=== PATIENT | female | born 1945 | race Caucasian/White ===

== ENCOUNTER 2022-06-28 09:01 | Inpatient (IN) | payer OTHER, SELFPAY ==
[2022-06-28] VITALS (14 sets, daily range): BP systolic 92–188; BP diastolic 63–111; PULSE 63–80; RESP 12–24; TEMP 36.5–36.8; O2SAT 88–100; BMI 35.6
--- NOTE | 2022-06-28 | ECHO_ITS ---
Patient Info Name: Edith Draper Age: 77 years : 1945 Gender: Female Ht: 61 in Wt: 178 lbs BSA: 1.90 m2 HR: 75 bpm BP: 155 / 81 mmHg Heart Rhythm: Sinus Rhythm Technical Quality: Fair Exam Date: 06/28/2022 1:00 PM Exam Location: [facility] Patient Status: Inpatient Admit Date: 06/28/2022 Staff Ordering Physician: Desiree Reyes MD (bobby/ned) Certified Registered Nurse Anesthetist: Melva Wyman RDCS Attending Provider: Desiree Reyes MD (bobby/ned) Referring Physician: Eric SOARES; Exam Type: CA echo dop color flow w con Study Info Indications - STEMI s/p PCI Complete two-dimensional, color flow and Doppler transthoracic echocardiogram is performed with contrast to opacify the left ventricle and to improve the deliniation of the left ventricle endocardial borders. Contrast/Agitated Saline Contrast/Ag. Saline: Definity Amount: 2.00 ml Administered By: Melva Wyman RDCS Existing IV Access: Yes IV Access Condition: patent with no signs of infiltration Summary 1. Technically difficult study with limited views. 2. Left ventricular systolic function is severely reduced, estimated at <15%. 3. Regional wall motion abnormalities consistent with a large infarction in the LAD territory. Left Ventricle The mid inferolateral and mid anteroseptum jiang are hypokinetic. The mid inferoseptum, mid anterolateral, apical septum, and apical lateral jiang are akinetic. The mid inferior, apical inferior, mid anterior, and apical anterior jiang appear hypokinetic-akinetic. Left ventricular chamber dimension is normal. Left ventricular systolic function is severely reduced, estimated at <15%. There is no increased left ventricular wall thickness. Right Ventricle Right ventricular chamber dimension is not well visualized. Left Atria Left atrial chamber dimension is normal. Right Atria Right atrial chamber dimension is normal. Aortic Valve The aortic valve is not well visualized. There is no aortic valve regurgitation. Pulmonic Valve The pulmonic valve is not well visualized. Mitral Valve Mitral valve appears grossly normal. There is no mitral valve stenosis. There is trace mitral valve regurgitation. Tricuspid Valve The tricuspid valve leaflets are not well visualized. Pericardium/Pleural There is small pericardial effusion. Aorta The aortic root size at the sinus of Valsalva is normal. The prox ascending aorta size is normal. Left Ventricular Outflow Tract Name Value Normal LVOT 2D LVOT Diameter 2.05 cm LVOT Doppler LVOT Peak Gradient 6 mmHg LVOT Mean Gradient 3 mmHg LVOT VTI 25.79 cm LVOT VTI/AV VTI Ratio 0.88 LVOT Stroke Volume 85.13 ml LVOT CO 5.10 l/min LVOT CI 2.69 L/min/m2 Mitral Valve Name Value
--- NOTE | 2022-06-28 09:12 | ECG_ITS ---
Measurements Intervals [place] Rate: 68 P: 48 [place]: 163 QRS: -41 QRSD: 86 T: 53 QT: 416 QTc: 444 Interpretive Statements SINUS RHYTHM VENTRICULAR PREMATURE COMPLEX LEFT AXIS DEVIATION LOW QRS VOLTAGE IN PRECORDIAL LEADS VOLTAGE CRITERIA FOR LVH POOR R WAVE PROGRESSION, ANTERIOR LEADS ANTERIOR ST ELEVATION MYOCARDIAL INJURY- ACUTE BASELINE ARTIFACT- I, II, III, AVR, AVF, V1, V5-V6 ABNORMAL ECG NO PREVIOUS ECG AVAILABLE FOR COMPARISON Electronically Signed On 06-28-2022 12:25:21 CDT by Natan Alba D.O.
[2022-06-28] MEDS: ASPIRIN 81 MG CHEWABLE TABLET 324 MG PO (09:14)
[2022-06-28] MEDS: NITROGLYCERIN SL 0.4 MG TABLET SUBLINGUAL ×2 (09:14→17:20)
--- NOTE | 2022-06-28 09:18 | ED.CHESTPAIN ---
HPI - Chest Pain General Chief Complaint: Chest Pain Stated Complaint: CHEST PAIN X1D Time Seen by Provider: 06/28/22 09:05 History of Present Illness HPI narrative: 77-year-old female presents to the emergency room today for complaints of right-sided chest pain that radiates into her right arm and into her back. She says that the pain started on Monday evening. It has been continuous but has been worse today. She does report that it is worse with activity. She describes the pain as an aching feeling and it comes in waves of intensity. She has had nausea but no vomiting. Denies having any cough or congestion. No fever. She does report feeling short of breath at times. She denies having any cardiac history but she is treated for high blood pressure. She does not currently see a social service director and has not had any stress test or echocardiogram done. She still has her gallbladder. Related Data Allergies Allergy/AdvReac Type Severity Reaction Status Date / Time levofloxacin Allergy Unknown HIVES Verified 06/28/22 09:19 methocarbamol Allergy Unknown HIVES Verified 06/28/22 09:19 Review of Systems Review of Systems: CONSTITUTIONAL: Denies fever, chills, or sweats. EYES: Denies visual changes, redness, or discharge. ENT: Denies rhinorrhea, congestion, sore throat, or otalgia. CARDIOVASCULAR: As per HPI RESPIRATORY: Reports intermittent shortness of breath GASTROINTESTINAL: Reports nausea, no vomiting GENITOURINARY: Denies dysuria or hematuria. SKIN: Denies rash or itching. MUSCULOSKELETAL: Denies back pain, joint pain, or myalgia. NEUROLOGIC: Denies headache, numbness, dizziness, or weakness. PSYCHIATRIC: Denies anxiety or depression. [facility] Family History Family History Father Family history of elevated blood lipids Acute myocardial infarction Sibling Family history of lung cancer Grandparent Acute myocardial infarction Social History Social History Alcohol intake: never Exam Narrative: GENERAL: Well-appearing, well-nourished, appears uncomfortable HEAD: Normocephalic, atraumatic. EYES: PERRLA and EOMI. ENT: Nares clear, no rhinorrhea or epistaxis. Mucous membranes moist. NECK: Supple. No adenopathy or masses. No carotid bruits or JVD CHEST: Clear to auscultation. No respiratory distress. No wheezes rales or rhonchi HEART: Regular rate and rhythm. No murmur heard. Normal peripheral pulses. ABDOMEN: Soft, very tender RUQ EXTREMITIES: Normal range of motion. No edema. SKIN: Warm, dry, no rash. NEURO: No focal deficits. Alert and oriented x3. PSYCH: Normal mood and affect. Course Course Emergency Course: Dr. Ly reviewed EKG and shows a STEMI Code STEMI called at [id number] Cardiology at bedside to evaluate the patient. STEMI protocol in place. 0938 Pt has been taken to the clinical laboratory service teacher. Vital Signs Vital signs: Vital Signs Temperature 36.6 C 06/28/22 09:05 Pulse Rate 73 06/28/22 09:05 Respiratory Rate 16 06/28/22 09:05 Blood Pressure 188/111 H 06/28/22 09:05 Pulse Oximetry 96 06/28/22 09:05 Oxygen Delivery Room Air 06/28/22 09:05 Temperature 36.6 C 06/28/22 09:05 Pulse Rate 73 06/28/22 09:05 Respiratory Rate 16 06/28/22 09:05 Blood Pressure 188/111 H 06/28/22 09:05 Pulse Oximetry 96 06/28/22 09:05 Oxygen Delivery Room Air 06/28/22 09:05 MDM - Chest Pain Lab Data Result diagrams: 06/28/22 09:23 06/28/22 09:23 Labs: Lab Results 06/28/22 06/28/22 06/28/22 Range/Units 09:23 09:23 09:23 WBC 13.8 H (4.5-10.0) K/mm3 RBC 5.00 (4.2-5.4) M/mm3 Hgb 15.8 H (12.0-15.0) g/dL Hct 45.2 (37.0-47.0) % MCV 90.4 (80-100) fl MCH 31.6 (26-34) pg MCHC 35.0 (32-36) g/dl RDW 13.2 (11.5-14.5) % Plt Count 223 (150-375) k/mm3 MPV 9.6 (7.4-10.4) fl Immature Gran % (Auto)
--- NOTE | 2022-06-28 09:19 | PC.NURSE ---
Per ALEJANDRA Jacobsen verbal order readback, give 1 nitro SL and 324mg Aspirin
[2022-06-28] MEDS: ONDANSETRON INJ 4 MG/2 ML VIAL IV PUSH ×2 (09:24→17:18)
[2022-06-28] MEDS: fentaNYL CITRATE INJ (*CRX) 100 MCG/2 ML VIAL 50 MCG IV PUSH (09:25)
--- NOTE | 2022-06-28 09:27 | ECG_ITS ---
Measurements Intervals [place] Rate: 71 P: 59 GA: 135 QRS: -44 QRSD: 85 T: 18 QT: 403 QTc: 441 Interpretive Statements SINUS RHYTHM ATRIAL PREMATURE COMPLEX LOW QRS VOLTAGE IN PRECORDIAL LEADS POOR R WAVE PROGRESSION, ANTERIOR LEADS ANTEROLATERAL ST ELEVATIOIN MYOCARIDAL INJURY- ACUTE HIGH LATERAL ST ELEVATION MYOCARDIAL INFARCT- ACUTE BASELINE ARTIFACT- AVR, AVL, AVF ABNORMAL ECG COMPARED TO ECG 06/28/2022 09:14:[address] ELEVATION MYOCARDIAL INFARCT- ACUTE NOW PRESENT Electronically Signed On 06-28-2022 12:27:04 CDT by Natan Alba D.O.
--- NOTE | 2022-06-28 09:27 | PC.NURSE ---
Per EDP Demi, repeat EKG ordered
[2022-06-28 09:33] LABS: Basophils Absolute Auto 0.1 K/mm3 (0.0-0.1); Basophils Percent Auto 0.5 % (0.2-1.2); Eosinophils Percent Auto 0.3 % (0-4.4); Hematocrit 45.2 % (37.0-47.0); Hemoglobin 15.8 g/dL (12.0-15.0); Immature Granulocyte Absolute 0.08 K/mm3 (0.00-0.031); Immature Granulocyte Percent A 0.6 % (0-0.5); Lymphocytes Absolute Auto 2.23 K/mm3 (0.9-3.2); Lymphocytes Percent Auto 16.2 % (18.3-44.2); Mean Corpuscular Hemoglobin 31.6 pg (26-34); Mean Corpuscular Volume 90.4 fl (80-100); Mean Platelet Volume 9.6 fl (7.4-10.4); Monocytes Absolute Auto 0.7 K/mm3 (0.1-0.6); Neutrophils Absolute Auto 10.7 K/mm3 (1.3-6.7); Neutrophils Percent Auto 77.4 % (45.5-73.1); Platelet Count Result 223 k/mm3 (150-375); Red Cell Distribution Width 13.2 % (11.5-14.5); White Blood Count 13.8 K/mm3 (4.5-10.0)
--- NOTE | 2022-06-28 09:42 | PC.NURSE ---
Patient given 180mg Brilinta and 4000units heparin per EDP Simms
[2022-06-28 09:45] LABS: Alanine Aminotransferase 31 U/L (6-35); Albumin Level 4.6 g/dL (3.5-5.1); Alkaline Phosphatase 103 U/L (38-126); Anion Gap 13 mmol/L (8-16); Aspartate Amino Transferase 83 U/L (14-36); Bilirubin,Total 0.6 mg/dL (0.2-1.3); Blood Urea Nitrogen 20 mg/dL (7-17); Calcium 9.9 mg/dL (8.4-10.2); Carbon Dioxide 18 mmol/L (22-30); Chloride 107 mmol/L (98-107); Estimated CRCL calculation 49 ml/min; Estimated Glomerular Filt Rate > 60; Glucose 175 mg/dL (65-110); Lipase 64 U/L (23-300); Partial Thromboplastin Time 30.4 SECONDS (22.3-36.8); Potassium 3.9 mmol/L (3.4-5.0); Sodium 138 mmol/L (137-145)
[2022-06-28 10:51] LABS: Activated Clotting Time 277 SEC (74-137)
[2022-06-28 10:51] LABS: Activated Clotting Time 474 SEC (74-137)
[2022-06-28 10:51] LABS: Activated Clotting Time 208 SEC (74-137)
--- NOTE | 2022-06-28 11:56 | ECG_ITS ---
Measurements Intervals [place] Rate: 67 P: 54 MT: 144 QRS: -51 QRSD: 88 T: 109 QT: 404 QTc: 427 Interpretive Statements SINUS RHYTHM ATRIAL PREMATURE COMPLEX LOW QRS VOLTAGE IN PRECORDIAL LEADS LEFT ANTERIOR FASCICULAR BLOCK ANTEROLATERAL INFARCT, PROBABLY RECENT HIGH LATERAL INFARCT, PROBABLY RECENT BASELINE ARTIFACT- I, II, AVR ABNORMAL ECG COMPARED TO ECG 06/28/2022 09:30:33 LEFT ANTERIOR FASCICULAR BLOCK NOW PRESENT Electronically Signed On 06-28-2022 16:52:53 CDT by Natan Alba D.O.
--- NOTE | 2022-06-28 11:59 | WPDMODSED ---
Moderate Sedation Note-Pt Data Patient Data Diagnosis: STEMI Present Complaint: Chest pain Procedure to be performed/Plan: Cardiac cath +/- PCI Allergies Allergy/AdvReac Type Severity Reaction Status Date / Time levofloxacin Allergy Unknown HIVES Verified 06/28/22 09:19 methocarbamol Allergy Unknown HIVES Verified 06/28/22 09:19 Current Medications: Active Medications Aspirin (Aspirin 81 Mg Enteric Tablet) 81 mg PO QAM AIDEE Atorvastatin Calcium (Atorvastatin 40 Mg Tablet) 80 mg PO DAILY AIDEE Sodium Chloride (Normal Saline Iv) 1,000 mls @ 125 mls/hr IV CONT .Q8H ONE Stop: 06/28/22 19:55 Nitroglycerin (Nitroglycerin Sl 0.4 Mg Tablet) 0.4 mg SUBLINGUAL Q5MIN PRN PRN Reason: Chest Pain Perflutren Lipid Microsphere (Perflutren Lipid Microspheres 1.5 Ml Vial Diluted To 10 Ml Total Volume) 0 ml IV PUSH ONCE PRN; Protocol PRN Reason: adequate visualization Stop: 06/30/22 11:52 Ticagrelor (Ticagrelor 90 Mg Tablet) 90 mg PO Q12HR AIDEE Sedation/Anesthesia: No previous sedation/anesthesia problems (including family history). [facility] Family History Family History Father Family history of elevated blood lipids Acute myocardial infarction Sibling Family history of lung cancer Grandparent Acute myocardial infarction Social History Social History Alcohol intake: never Mod Sed Physical Exam Physical Exam Pre Procedural Exam: Normal: Lungs (Non-labored respirations), Heart Rhythm (Sinus rhythm), Neuro Exam (Alert and oriented x 3), Extremities (2+ distal pulses) and Skin (Warm and dry) and Variation: Appearance (In distress with active chest pain) Hours since solid foods: 4 Hours since liquid intake: 5 Mallampati Classification: class III Internal Medicine - PN: Obj Da Vital Signs Vital Signs: Vital Signs - 24 hr 06/28/22 09:05 06/28/22 09:15 06/28/22 09:34 Temperature 36.6 C Pulse Rate 73 75 71 Respiratory Rate 16 12 Blood Pressure 188/111 H 155/81 H Pulse Oximetry 96 95 Oxygen Delivery Room Air Meds/Results Medications: Active Medications Generic Name Dose Route Start Last Admin Trade Name Freq PRN Reason Stop Dose Admin Aspirin 81 mg 06/29/22 09:00 Aspirin 81 Mg Enteric Tablet PO QAM [facility] Atorvastatin Calcium 80 mg 06/29/22 09:00 Atorvastatin 40 Mg Tablet PO DAILY [facility] Sodium Chloride 1,000 mls @ 125 mls/hr 06/28/22 11:56 Normal Saline Iv IV CONT 06/28/22 19:55 .Q8H ONE Nitroglycerin 0.4 mg 06/28/22 11:56 Nitroglycerin Sl 0.4 Mg Tablet SUBLINGUAL Q5MIN PRN Chest Pain Perflutren Lipid Microsphere 0 ml 06/28/22 11:51 Perflutren Lipid Microspheres 1.5 Ml Vial Diluted To 10 Ml Total Volume IV PUSH 06/30/22 11:52 ONCE PRN adequate visualization Protocol Ticagrelor 90 mg 06/28/22 21:00 Ticagrelor 90 Mg Tablet PO Q12HR [facility] Labs CBC & Chem 7: 06/28/22 09:23 06/28/22 09:23 Labs: Laboratory Results - last 24 hr 06/28/22 06/28/22 06/28/22 09:23 09:23 09:23 WBC 13.8 H RBC 5.00 Hgb 15.8 H Hct 45.2 MCV 90.4 MCH 31.6 MCHC 35.0 RDW 13.2 Plt Count 223 MPV 9.6 Immature Gran % (Auto) 0.6 H Neut % (Auto) 77.4 H Lymph % (Auto) 16.2 L King % (Auto) 5.0 Eos % (Auto) 0.3 Baso % (Auto) 0.5 Lymph # (Auto) 2.23 King # (Auto) 0.7 H Eos # (Auto) 0.0 Baso # (Auto) 0.1 Abs Immat Gran (auto) 0.08 H Absolute Neuts (auto) 10.7 H Absolute Nucleated RBC 0.0 Nucleated RBC % 0.0 PT 13.0 INR 1.0 APTT 30.4 Activ Coag Time Kaolin Sodium 138 Potassium 3.9 Chloride 107 Carbon Dioxide 18 L Anion Gap 13 BUN 20 H Creatinine 0.80 Estim Creat Clear Calc 49 Estimated GFR > 60 Glucose 175 H Calcium 9.9 Total Bilirubin 0.6 AST 83 H ALT 31 Alkaline Phosphatas
--- NOTE | 2022-06-28 12:47 | WPDCNINT ---
Assessment and Plan Assessment and plan (1) ST elevation (STEMI) myocardial infarction: Code(s): I21.3 - ST elevation (STEMI) myocardial infarction of unspecified site Status: Acute Assessment and Plan: Patient presented with chest pain to the ED on 06/28/2022 she stated she chest since 06/26, with increasing intensity along with nausea, vomiting, shortness of breath and diaphoresis that prompted her to come to the ED. EKG in the ER showed ST elevations in the anterior and lateral leads. Troponins were elevated in the ER at 4.260. Patient was urgently taken to the cardiac analytical lab analyst which she had a PTCA/PTCI with SARI x2 to the LAD, LVEDP was 38 mmHg, patient was given Lasix. The lesion was tight, more contrast was given than normal per Cardiology. Patient was given nitroglycerin during the procedure -currently on maintenance IV fluids per cardiac catheterization protocol -patient is started on Brilinta, aspirin and atorvastatin -cardiology following the patient closely (2) Chest pain: Code(s): R07.9 - Chest pain, unspecified Status: Acute Assessment and Plan: STEMI, as above (3) Essential hypertension: Code(s): I10 - Essential (primary) hypertension Status: Acute Assessment and Plan: Blood pressure is a low normal at this time, continue to monitor Plan DVT prophylaxis: SCDs Stress ulcer prophylaxis: Not applicable Nutrition: Heart healthy diet Discussed with patient and updated with her condition and plan of care. She is aware that she had 2 stents placed to her coronary artery, I answered all her questions Code Status: Full code Critical Care Time Spent: 43 minutes Due to a high probability of clinically significant, life threatening deterioration, the patient required my highest level of preparedness to intervene emergently and I personally spent this critical care time directly and personally managing the patient. This critical care time included obtaining a history; examining the patient; pulse oximetry; ordering and review of studies; arranging urgent treatment with development of a management plan; evaluation of patient's response to treatment; frequent reassessment; and discussions with other providers. It was exclusive of separately billable procedures and treating other patients and teaching time. Please see Assessment and Plan section and the rest of the note for further information on patient assessment and treatment [employer] Consult Note Consult date: 06/28/22 Reason for consult: Chest pain with nausea, diaphoresis, radiation to the right arm, STEMI was called in the ER, patient was taken to the analytical lab analyst emergently where she was found to have occlusion of the LAD status post PTCA/PTCI with SARI x2 to LAD, LVEDP was 38 mmHg. HPI: Edith Draper is a 77 year old female with history of cervical spine stenosis, essential hypertension no prior coronary artery disease presented the ED on 06/28/2022 complains of chest pain that radiates to her right arm into her back, patient also had nausea, diaphoresis. States the pain started on 06/26/2022 and has been getting worse since then, she did state that it was worse with activity. Complained of pressure-like continuous aching pain. Denies any fevers, chills, cough. She did complain of some shortness of breath at times. EKG in the ER showed ST elevations in the anterior and lateral leads. Troponins were elevated in the ER at 4.260. Patient was urgently taken to the cardiac analytical lab analyst which she had a PTCA/PTCI with SARI x2 to the LAD, LVEDP was 38 mmHg, patient was given Lasix. The lesion was pretty tight, more contrast was given than normal per Cardiology. I discussed with the steam engineer, no other coronary artery were diseased. Patient was transferred to the ICU for further management. Patient seen and examined upon arrival to the ICU, she was initially hypoxic, supplemental oxygen was placed via nasal cannula with improvement
[2022-06-28] MEDS: SODIUM CHLORIDE 0.9% IV 1,000 ML 125 ML IV CONT (12:52)
[2022-06-28] MEDS: PERFLUTREN LIPID MICROSPHERES 1.5 ML VIAL DILUTED TO 10 ML TOTAL VOLUME IV PUSH (13:45)
--- NOTE | 2022-06-28 14:06 | ADMGEN ---
This patient, Edith Draper, was admitted to Intensive Care Unit-7. Patient/family oriented to hospital policies and general routines including ID bracelet, bed and alarms, visiting hours, pain management, procedures, bathroom and other care routines, personal items, smoking policy, room service/diet, and visiting hours. Information on how to activate the Rapid Response Team has been discussed. Patient/Family are encouraged to report perceived risks to care and to ask questions if they do not understand what they are told or what they should do.
[2022-06-28 14:09] LABS: Basophils Percent Auto 0.3 % (0.2-1.2); Hematocrit 46.3 % (37.0-47.0); Hemoglobin 15.6 g/dL (12.0-15.0); Immature Granulocyte Absolute 0.08 K/mm3 (0.00-0.031); Immature Granulocyte Percent A 0.5 % (0-0.5); Lymphocytes Absolute Auto 1.41 K/mm3 (0.9-3.2); Lymphocytes Percent Auto 9.1 % (18.3-44.2); Mean Corpuscular HGB Conc 33.7 g/dl (32-36); Mean Corpuscular Hemoglobin 31.3 pg (26-34); Mean Corpuscular Volume 92.8 fl (80-100); Mean Platelet Volume 9.8 fl (7.4-10.4); Monocytes Absolute Auto 0.9 K/mm3 (0.1-0.6); Monocytes Percent Auto 5.9 % (2.6-8.5); Neutrophils Absolute Auto 13.1 K/mm3 (1.3-6.7); Neutrophils Percent Auto 84.2 % (45.5-73.1); Platelet Count Result 212 k/mm3 (150-375); Red Blood Count 4.99 M/mm3 (4.2-5.4); Red Cell Distribution Width 13.6 % (11.5-14.5); White Blood Count 15.5 K/mm3 (4.5-10.0)
--- NOTE | 2022-06-28 14:11 | IVDEFINITY ---
Prior to administration of IV Definity the patient was educated on the risks and benefits of the imaging enhancing agent including potential adverse side effects. The patient verbalized understanding. Allergies were verified. No exclusion criteria were identified and at least one of the following inclusion criteria were met: 1) physician request, 2) patient technically difficult to image (per the [place] [employer]chocardi[employer] guidelines of two or more segments not discernable within the apical view), or 3) questionable left ventricular function. ?
[2022-06-28 14:19] LABS: Anion Gap 13 mmol/L (8-16); Blood Urea Nitrogen 19 mg/dL (7-17); Calcium 9.5 mg/dL (8.4-10.2); Carbon Dioxide 25 mmol/L (22-30); Chloride 101 mmol/L (98-107); Estimated CRCL calculation 44 ml/min; Estimated Glomerular Filt Rate > 60; Glucose 151 mg/dL (65-110); Potassium 3.5 mmol/L (3.4-5.0); Sodium 139 mmol/L (137-145)
[2022-06-28 14:42] LABS: Troponin I > 80.000 ng/mL (0.000-0.034)
--- NOTE | 2022-06-28 15:09 | PM.IMHP ---
H&P: HPI History of Present Illness Date/Time: 06/28/22 15:09 Chief Complaint: Chest Pain Narrative: Patient is a 77-year-old female with a history of hypertension who presented to the ED with chest pain. Patient states she developed chest pain on Monday, and has been ongoing since then. Upon presentation to the ED, patient found to have anterolateral STEMI, therefore, laborer wrecking and salvaging activated, and patient taken emergently to the lab for primary PCI. No history of recent bleeding. Has associated symptoms of shortness of breath and nausea. Review of Systems Review of Systems: All systems reviewed & are unremarkable except as noted in HPI and below (HPI) [facility] Family History Family History Father Family history of elevated blood lipids Acute myocardial infarction Sibling Family history of lung cancer Grandparent Acute myocardial infarction Social History Social History Smoking status: Never smoker Alcohol intake: never Substance use: never Substance use type: does not use Spiritual care concerns: No Meds Home Medications and Allergies Allergies Allergy/AdvReac Type Severity Reaction Status Date / Time levofloxacin Allergy Unknown HIVES Verified 06/28/22 09:19 methocarbamol Allergy Unknown HIVES Verified 06/28/22 09:19 Vital Signs Vital Signs - 24 hr 06/28/22 09:05 06/28/22 09:15 06/28/22 09:34 Temperature 36.6 C Pulse Rate 73 75 71 Respiratory Rate 16 12 Blood Pressure 188/111 H 155/81 H Pulse Oximetry 96 95 Oxygen Delivery Room Air 06/28/22 12:30 06/28/22 12:45 06/28/22 13:00 Temperature 36.5 C Pulse Rate 80 67 80 Respiratory Rate 21 H 22 H 23 H Blood Pressure 122/78 122/78 92/77 L Pulse Oximetry 88 L 98 99 Oxygen Delivery 06/28/22 13:15 Temperature Pulse Rate 64 Respiratory Rate 18 Blood Pressure 131/80 Pulse Oximetry 100 Oxygen Delivery Exam Const: General: in distress mild Resp: Effort & Inspection: normal respiratory effort Auscultation: diminished lung sounds Cardio: Rate: regular rate Rhythm: regular rhythm Heart sounds: no murmurs GI: GI Palp: Yes Soft to palpation and No Tenderness to palpation present (GI) Skin: General skin exam: normal color Neuro: Speech: normal speech Extrem: Other: 2+ distal pulses Psych: Mental Status: mental status grossly normal H&P: Results Labs Labs: Short CBC 06/28/22 06/28/22 Range/Units 09:23 13:51 WBC 13.8 H 15.5 H (4.5-10.0) K/mm3 Hgb 15.8 H 15.6 H (12.0-15.0) g/dL Hct 45.2 46.3 (37.0-47.0) % Plt Count 223 212 (150-375) k/mm3 BMP 06/28/22 06/28/22 09:23 13:51 Sodium 138 139 Potassium 3.9 3.5 Chloride 107 101 Carbon Dioxide 18 L 25 BUN 20 H 19 H Creatinine 0.80 0.90 Glucose 175 H 151 H Calcium 9.9 9.5 Cardiac Enzymes 06/28/22 06/28/22 Range/Units 09:23 13:51 Troponin I 4.260 H* > 80.000 H* D (0.000-0.034) ng/mL Liver Function 06/28/22 Range/Units 09:23 Total Bilirubin 0.6 (0.2-1.3) mg/dL AST 83 H (14-36) U/L ALT 31 (6-35) U/L Alkaline Phosphatase 103 (38-126) U/L Albumin 4.6 (3.5-5.1) g/dL Vital signs, labs, and imaging personally reviewed and independently interpreted. ECG showing acute anterolateral STEMI Assessment and Plan Assessment and plan (1) ST elevation (STEMI) myocardial infarction: Code(s): I21.3 - ST elevation (STEMI) myocardial infarction of unspecified site Status: Acute (2) Essential hypertension: Code(s): I10 - Essential (primary) hypertension Status: Acute Plan Patient presented with a delayed acute anterolateral STEMI (presentation after >48 hours from time of symptom onset). Taken emergently to the cardiac laborer wrecking and salvaging. Found with a 100% thrombotic occlusion of the mid LAD. Successful primary PCI was done with 2 stents in the proximal-mid LAD. Complex PCI
--- NOTE | 2022-06-28 15:41 | WPDCARDPROC ---
Cardiac Cath Procedure Note Date of procedure:: 06/28/22 Performing physician:: Desiree Reyes MD Indication:: CATHETERIZATION LABORATORY REPORT Procedure Date: June 28, 2022 Dry Pan Charger: Desiree Reyes M.D., [facility]? Referring Physician: [facility] Emergency Department - Ann-Marie Lee Anesthesia: Versed and Fentanyl were ordered and given in my presence at 0950, procedure ended at 1142. Supervision of nurse monitored moderate sedation with Versed and Fentanyl was provided for 112 minutes. Patient given a total of 2mg of Versed and 75mcg of Fentanyl. 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 Nonobstructive disease of the left circumflex and RCA. Elevated left ventricular end-diastolic pressure of 38 mmHg Procedure(s): Moderate sedation Right radial artery access Coronary angiography Left heart catheterization IVUS of LAD Placement of drug-eluting stents x2 in the proximal to mid LAD Access Site: Right radial artery Brief History and Clinical Indications: Patient is a 77-year-old female with a history of hypertension who presented with chest pain that began on Monday. Upon presentation to the ED, ECG was remarkable for anterolateral STEMI. Patient had ongoing chest pain. Patient referred for emergent cardiac catheterization for primary PCI. All risks, benefits and alternatives to left heart catheterization with or without percutaneous coronary intervention was discussed at length with the patient. Risk of complications including but not limited to bleeding, infection, arrhythmia, stroke, worsening kidney function, blood loss, groin hematoma, limb loss, emergency coronary artery bypass grafting, and even were discussed with the patient and all questions were answered. The patient understood and wished to proceed. Time out called, patient name, date of , medical record number, allergies, procedure performed, identify Dry Pan Charger, patient and staff member concurred with accurate data, procedure carried on. Findings: LEFT HEART CATHETERIZATION FINDINGS: 1. Left main: The left main coronary artery is widely patent without any significant obstructive disease. 2. Left anterior descending: The proximal LAD has a significant 80% blockage. Distal to this stenosis, there is 100% thrombotic occlusion in the mid LAD. 3. Left circumflex: The ostium of the left circumflex has a mild 10-20% plaque. Rest of the left circumflex has mild luminal irregularities. There is a large caliber OM vessel with mild luminal irregularities. No significant obstructive disease in the left circumflex/OM system. 4. Right coronary artery: The RCA has mild diffuse disease without any significant obstructive angiographic disease. The RCA is the dominant vessel. 5. Left ventricle: A. End-diastolic pressure 38mmHg. B. LV gram deferred. C. No significant gradient across aortic valve on catheter pullback. Description of Procedure and PCI: Informed consent signed and placed in the chart. Patient transferred to quality lab technician room. Prepped and draped in usual sterile fashion. 2% lidocaine injected subcutaneously in right wrist area. 22-gauge venipuncture catheter used to access the right radial artery with the Seldinger technique. 6-FR slender sheath placed in right radial artery. Cocktail of Nitroglycerin and Cardene was given intraarterial through the sheath. Glidewire wire advanced under fluoroscopy 6 Wol[place] Tig 4 diagnostic catheter engaged Left Main Coronary Artery. Multiple orthogonal angiogram obtained and reviewed. Heparin was used for anticoagulation (ACT maintained above 250) Patient loaded with Heparin at 70 units/kg. 6F CLS guide catheter was used to intubate the left main coronary artery. 0.014 [place] coronary wire was pa
[2022-06-28] MEDS: FUROSEMIDE INJ 40 MG/4 ML VIAL IV PUSH (17:18)
[2022-06-28 17:47] LABS: Hemoglobin A1C 5.8 % (<5.7)
[2022-06-28 18:11] LABS: Troponin I > 80.000 ng/mL (0.000-0.034)
--- NOTE | 2022-06-28 18:16 | PC.NURSE ---
Lab reports critical troponin of >80. Dr. Reyes made aware. No new orders at this time.
[2022-06-28] MEDS: TICAGRELOR 90 MG TABLET PO (20:51)
[2022-06-29] VITALS (17 sets, daily range): BP systolic 103–139; BP diastolic 50–78; PULSE 70–91; RESP 18–24; TEMP 36.8–37.4; O2SAT 95–99
[2022-06-29 04:27] LABS: Basophils Percent Auto 0.2 % (0.2-1.2); Eosinophils Percent Auto 0.1 % (0-4.4); Hematocrit 43.4 % (37.0-47.0); Hemoglobin 15.2 g/dL (12.0-15.0); Immature Granulocyte Absolute 0.09 K/mm3 (0.00-0.031); Immature Granulocyte Percent A 0.5 % (0-0.5); Lymphocytes Absolute Auto 1.52 K/mm3 (0.9-3.2); Lymphocytes Percent Auto 8.4 % (18.3-44.2); Mean Corpuscular Hemoglobin 31.6 pg (26-34); Mean Corpuscular Volume 90.2 fl (80-100); Mean Platelet Volume 9.7 fl (7.4-10.4); Monocytes Absolute Auto 1.8 K/mm3 (0.1-0.6); Neutrophils Absolute Auto 14.6 K/mm3 (1.3-6.7); Neutrophils Percent Auto 80.8 % (45.5-73.1); Platelet Count Result 199 k/mm3 (150-375); Red Blood Count 4.81 M/mm3 (4.2-5.4); Red Cell Distribution Width 13.4 % (11.5-14.5); White Blood Count 18.1 K/mm3 (4.5-10.0)
[2022-06-29 04:40] LABS: Alanine Aminotransferase 92 U/L (6-35); Albumin Level 4.4 g/dL (3.5-5.1); Alkaline Phosphatase 85 U/L (38-126); Anion Gap 15 mmol/L (8-16); Aspartate Amino Transferase 491 U/L (14-36); Bilirubin,Total 0.6 mg/dL (0.2-1.3); Blood Urea Nitrogen 19 mg/dL (7-17); Calcium 9.1 mg/dL (8.4-10.2); Carbon Dioxide 27 mmol/L (22-30); Chloride 100 mmol/L (98-107); Cholesterol 226 mg/dL (0-200); Estimated CRCL calculation 45 ml/min; Estimated Glomerular Filt Rate > 60; Glucose 174 mg/dL (65-110); HDL Direct 48 mg/dL; Magnesium 1.6 mg/dL (1.6-2.3); Phosphorus 3.7 mg/dL (2.5-4.5); Potassium 3.2 mmol/L (3.4-5.0); Sodium 142 mmol/L (137-145); Triglycerides 160 mg/dL (<150)
[2022-06-29 04:51] LABS: LDL Cholesterol Direct 122 mg/dL
[2022-06-29] MEDS: TICAGRELOR 90 MG TABLET PO ×2 (08:59→20:15)
[2022-06-29] MEDS: ATORVASTATIN 40 MG TABLET 80 MG PO (08:59)
[2022-06-29] MEDS: ASPIRIN 81 MG ENTERIC TABLET PO (08:59)
[2022-06-29] MEDS: POTASSIUM CHLORIDE 20 MEQ PACKET (FOR LIQUID) 40 MEQ PO ×2 (08:59→12:47)
--- NOTE | 2022-06-29 09:04 | WPDINTPN ---
Progress Note: A&P Assessment and Plan (1) ST elevation (STEMI) myocardial infarction: Code(s): I21.3 - ST elevation (STEMI) myocardial infarction of unspecified site Status: Acute Assessment and Plan: Patient presented with chest pain to the ED on 06/28/2022 she stated she chest since 06/26, with increasing intensity along with nausea, vomiting, shortness of breath and diaphoresis that prompted her to come to the ED. EKG in the ER showed ST elevations in the anterior and lateral leads. Troponins were elevated in the ER at 4.260. Patient was urgently taken to the cardiac process laboratory specialist which she had a PTCA/PTCI with SARI x2 to the LAD, LVEDP was 38 mmHg, patient was given Lasix. The lesion was tight, more contrast was given than normal per Cardiology. Patient now chest pain-free Continue Brilinta, aspirin beta-cynthia and atorvastatin Cardiology following (2) Cardiomyopathy: Code(s): I42.9 - Cardiomyopathy, unspecified Status: Acute Assessment and Plan: Ischemic cardiomyopathy. Echo showed Summary ? 1. Technically difficult study with limited views. ? 2. Left ventricular systolic function is severely reduced, estimated at <15%. ? 3. Regional wall motion abnormalities consistent with a large infarction in the LAD territory. Diuretics as above Add ARB (3) CHF (congestive heart failure): Code(s): I50.9 - Heart failure, unspecified Status: Acute Assessment and Plan: Patient received Lasix yesterday. Will give additional dose of 20 mg today after potassium replacement (4) Hypokalemia: Code(s): E87.6 - Hypokalemia Status: Acute Assessment and Plan: Likely secondary to Lasix Replacement ordered (5) Essential hypertension: Code(s): I10 - Essential (primary) hypertension Status: Acute Assessment and Plan: Blood pressure is a low normal at this time, continue to monitor (6) Elevated liver enzymes: Code(s): R74.8 - Abnormal levels of other serum enzymes Status: Acute Assessment and Plan: AST and ALT elevated likely secondary to [place] Monitor levels Continue statin for now, unless levels continue to increase Plan DVT prophylaxis: SCDs, patient ambulating Nutrition: Heart healthy diet Transfer out of ICU today Code Status: Full code Subjective Date/time seen: 06/29/22 Overnight events reviewed. Afebrile Patient states that she feels better and denies any symptoms. On 2 L nasal cannula Good response to Lasix Other Vitals acceptable Review of Systems Review of Systems: All systems reviewed & are unremarkable except as noted in HPI and below Exam Narrative: General: Very pleasant person in no acute distress HEENT:? Moist oral mucosa, pupils are equal and reactive, sclera is clear Neck:? Supple, no lymphadenopathy Respiratory:? Bibasilar crackles, no wheezing Cardiac:? S1-S2 was normal, regular rate and rhythm Abdomen:? Soft, non tender, non distended, protuberant, normoactive bowel sounds Extremities:? Right wrist site for the angiogram site with r dress. Site with no ecchymosis or hematoma, palpable radial pulse. No edema lower extremities Neuro:? Patient is awake, alert, oriented x3, nonfocal, follows simple commands in all extremities Skin:? No lesions noted Psych:? Normal mentation and affect Objective Data Vital Signs Vital Signs: Vital Signs - 24 hr 06/28/22 09:05 06/28/22 09:15 06/28/22 09:34 Temperature 36.6 C Pulse Rate 73 75 71 Respiratory Rate 16 12 Blood Pressure 188/111 H 155/81 H Pulse Oximetry 96 95 Oxygen Delivery Room Air Oxygen Flow Rate 06/28/22 12:30 06/28/22 12:45 06/28/22 13:00 Temperature 36.5 C Pulse Rate 80 67 80 Respiratory Rate 21 H 22 H 23 H Blood Pressure 122/78 122/78 92/77 L Pulse Oximetry 88 L 98 99 Oxygen Delivery Oxygen Flow Rate 06/28/22 13:15 06/28/22 13:30 06/28/22 14:00 Temperature Pulse Rate 64 65 79 Respiratory Rate
[2022-06-29] MEDS: METOPROLOL SUCCINATE EXT REL 25 MG TABCR PO (09:45)
--- NOTE | 2022-06-29 11:57 | PC.NURSE ---
This patient, Edith Draper, was transferred to [ 200] on 06/29/22 at 1157. Personal belongings sent with patient. Report given to [DAMARI Granados @ 0836 ]. Appropriate documentation sent with patient.
[2022-06-29] MEDS: FUROSEMIDE INJ 40 MG/4 ML VIAL 20 MG IV PUSH (14:11)
--- NOTE | 2022-06-29 14:17 | PM.PNCARD ---
Progress Note: A&P Assessment and Plan (1) ST elevation (STEMI) myocardial infarction: Code(s): I21.3 - ST elevation (STEMI) myocardial infarction of unspecified site Status: Acute (2) Cardiomyopathy: Code(s): I42.9 - Cardiomyopathy, unspecified Status: Acute (3) Elevated liver enzymes: Code(s): R74.8 - Abnormal levels of other serum enzymes Status: Acute (4) CHF (congestive heart failure): Code(s): I50.9 - Heart failure, unspecified Status: Acute Plan Discussed results of echocardiogram with the patient, which showed severely reduced left ventricular ejection fraction due to large LAD infarction. Continue aspirin 81 mg once daily. Patient will need to be on lifelong aspirin. Continue Brilinta 90 mg b.i.d. Patient will need to be on the Brilinta for at least 1 year. Continue high-intensity statin. Patient reports she has had intolerances to statins in the past, therefore we will continue to assess for side effects. For her cardiomyopathy, she was started on beta-cynthia and losartan. Will continue these and up titrate GDMT as tolerated. Continue IV diuresis as needed. Repeat BMP this afternoon given hypokalemia this morning. Referral to cardiac rehab placed. Transfer patient out of the ICU to IMU today. Continue to monitor renal function given the amount of contrast she received in the Cardiac catheterization lab. Subjective Date/time seen: 06/29/22 14:17 Interval history: No acute events overnight. Patient without chest pain. Patient does report mild tenderness at right radial access site, no bleeding or hematoma noted. Patient currently tolerating her medications. Remains hemodynamically stable. Review of Systems Review of Systems: All systems reviewed & are unremarkable except as noted in HPI and below (Subjective) Exam Const: General: comfortable and no acute distress Neck: Neck: no JVD Resp: Effort & Inspection: normal respiratory effort Auscultation: diminished lung sounds Cardio: Rate: regular rate Rhythm: regular rhythm Heart sounds: no murmurs GI: GI Palp: Yes Soft to palpation and No Tenderness to palpation present (GI) Skin: General skin exam: normal color Neuro: Speech: normal speech Extrem: General: no edema Psych: Mental Status: mental status grossly normal Objective Data Vital Signs Vital Signs: Vital Signs - 24 hr 06/28/22 15:00 06/28/22 16:00 06/28/22 16:00 Temperature 36.5 C Pulse Rate 74 64 67 Respiratory Rate 24 H 21 H Blood Pressure 135/71 130/74 Pulse Oximetry 100 100 Oxygen Delivery Oxygen Flow Rate 06/28/22 18:00 06/28/22 18:00 06/28/22 20:00 Temperature 36.8 C Pulse Rate 68 65 68 Respiratory Rate 23 H 20 Blood Pressure 121/68 115/63 Pulse Oximetry 99 99 Oxygen Delivery Oxygen Flow Rate 06/28/22 20:00 06/28/22 22:00 06/29/22 00:00 Temperature 36.8 C Pulse Rate 63 87 Respiratory Rate 20 22 H Blood Pressure 139/78 139/78 Pulse Oximetry 99 99 99 Oxygen Delivery Nasal Cannula Oxygen Flow Rate 3 06/29/22 02:00 06/29/22 00:00 06/29/22 04:00 Temperature 36.8 C Pulse Rate 83 70 Respiratory Rate 24 H 24 H Blood Pressure 129/69 117/67 Pulse Oximetry 99 99 98 Oxygen Delivery Nasal Cannula Oxygen Flow Rate 2 06/29/22 04:00 06/29/22 06:00 06/29/22 07:23 Temperature 36.8 C Pulse Rate 74 71 Respiratory Rate 22 H 21 H Blood Pressure 120/71 139/72 Pulse Oximetry 98 99 98 Oxygen Delivery Nasal Cannula Oxygen Flow Rate 2 06/29/22 08:16 06/29/22 08:19 06/29/22 08:00 Temperature Pulse Rate 72 Respiratory Rate Blood Pressure Pulse Oximetry 97 97 Oxygen Delivery Nasal Cannula Nasal Cannula Oxygen Flow Rate 2 2 06/29/22 08:00 06/29/22 09:45 06/29/22 10:00 Temperature Pulse Rate 91 72 Respiratory Rate Blood Pressure Pulse Oximetry 98 Oxygen Delivery Room Air Oxygen Flow Rate 06/29/22 10:00 06/29/22
[2022-06-29 15:14] LABS: Anion Gap 15 mmol/L (8-16); Blood Urea Nitrogen 22 mg/dL (7-17); Calcium 9.1 mg/dL (8.4-10.2); Carbon Dioxide 25 mmol/L (22-30); Chloride 99 mmol/L (98-107); Estimated CRCL calculation 45 ml/min; Estimated Glomerular Filt Rate > 60; Glucose 156 mg/dL (65-110); Potassium 4.1 mmol/L (3.4-5.0); Sodium 139 mmol/L (137-145)
[2022-06-29] MEDS: ONDANSETRON INJ 4 MG/2 ML VIAL IV PUSH (16:23)
--- NOTE | 2022-06-29 18:40 | PC.NURSE ---
Patient c/o SOB. O2 saturation 96% on room air, no chest pain, HR- 95, lung sounds clear. Room temperature elevated, adjusted per patient request.
[2022-06-30] VITALS (15 sets, daily range): BP systolic 91–107; BP diastolic 47–64; PULSE 66–96; RESP 18–22; TEMP 36.4–37.3; O2SAT 94–100
[2022-06-30 04:28] LABS: Hematocrit 42.4 % (37.0-47.0); Hemoglobin 14.3 g/dL (12.0-15.0); Mean Corpuscular HGB Conc 33.7 g/dl (32-36); Mean Corpuscular Hemoglobin 31.6 pg (26-34); Mean Corpuscular Volume 93.8 fl (80-100); Platelet Count Result 186 k/mm3 (150-375); Red Blood Count 4.52 M/mm3 (4.2-5.4); Red Cell Distribution Width 13.8 % (11.5-14.5); White Blood Count 13.7 K/mm3 (4.5-10.0)
[2022-06-30 05:04] LABS: Alanine Aminotransferase 63 U/L (6-35); Albumin Level 4.4 g/dL (3.5-5.1); Alkaline Phosphatase 81 U/L (38-126); Anion Gap 13 mmol/L (8-16); Aspartate Amino Transferase 199 U/L (14-36); Blood Urea Nitrogen 29 mg/dL (7-17); Calcium 9.1 mg/dL (8.4-10.2); Carbon Dioxide 27 mmol/L (22-30); Chloride 98 mmol/L (98-107); Estimated CRCL calculation 37 ml/min; Estimated Glomerular Filt Rate 48; Glucose 141 mg/dL (65-110); Magnesium 1.8 mg/dL (1.6-2.3); Potassium 3.4 mmol/L (3.4-5.0); Sodium 138 mmol/L (137-145)
[2022-06-30] MEDS: TICAGRELOR 90 MG TABLET PO ×2 (08:52→20:47)
[2022-06-30] MEDS: ATORVASTATIN 40 MG TABLET 80 MG PO (08:52)
[2022-06-30] MEDS: PANTOPRAZOLE 40 MG TABLET PO (08:53)
[2022-06-30] MEDS: ASPIRIN 81 MG ENTERIC TABLET PO (08:53)
[2022-06-30] MEDS: METOPROLOL SUCCINATE EXT REL 25 MG TABCR PO (08:53)
[2022-06-30] MEDS: LOSARTAN POTASSIUM 25 MG TABLET PO (08:54)
--- NOTE | 2022-06-30 10:50 | PM.PNCARD ---
Progress Note: A&P Assessment and Plan (1) ST elevation (STEMI) myocardial infarction: Code(s): I21.3 - ST elevation (STEMI) myocardial infarction of unspecified site Status: Acute Assessment and Plan: Late presentation anterolateral [place] with 100% thrombotic occlusion of the mid LAD. This was addressed with placement of 2 SARI in the proximal to mid LAD. Continue DAPT with ASA and Brilinta. Continue statin. Monitor for adverse effects as she reports inability to tolerate statins in the past. Aggressive risk factor modification for CAD Consult film color tester for heart healthy diet education Cardiac rehab referral Continue to monitor renal function, Cr 1.1 today (0.90) Plan for discharge tomorrow (2) Cardiomyopathy: Code(s): I42.9 - Cardiomyopathy, unspecified Status: Acute Assessment and Plan: Severe LV dysfunction, EF 15% GDMT with losartan, metoprolol. Increase metoprolol to 37.5mg daily Add spironolactone 25mg daily Add Jardiance 10mg daily (3) Elevated liver enzymes: Code(s): R74.8 - Abnormal levels of other serum enzymes Status: Acute Assessment and Plan: Improving (4) CHF (congestive heart failure): Code(s): I50.9 - Heart failure, unspecified Status: Acute Assessment and Plan: No signs of decompensated HF on exam. Subjective Date/time seen: 06/30/22 10:50 Cardiology follow up for STEMI Interval history: No acute events overnight. Patient without chest pain. Patient does report mild tenderness at right radial access site, no bleeding or hematoma noted. Patient currently tolerating her medications. Remains hemodynamically stable. Date of service 06/30/2022: She is feeling well this morning. Denies any chest pain, shortness of breath. She is ambulating about her room with no issue. Tolerating medications well. Review of Systems Review of Systems: All systems reviewed & are unremarkable except as noted in HPI and below (Subjective) Exam Const: General: comfortable, no acute distress and in distress mild Neck: Neck: no JVD Resp: Effort & Inspection: normal respiratory effort Auscultation: diminished lung sounds Cardio: Rate: regular rate Rhythm: regular rhythm Heart sounds: no murmurs Skin: General skin exam: normal color Neuro: Speech: normal speech Extrem: General: no edema Other: 2+ distal pulses. R radial arterial access site free from bleeding, hematoma. Radial pulse intact. Psych: Mental Status: mental status grossly normal Objective Data Vital Signs Vital Signs: Vital Signs - 24 hr 06/29/22 12:00 06/29/22 14:00 06/29/22 16:00 Temperature Pulse Rate 75 Respiratory Rate Blood Pressure Pulse Oximetry 95 95 Oxygen Delivery Room Air Room Air 06/29/22 16:31 06/29/22 16:00 06/29/22 18:00 Temperature 36.9 C Pulse Rate 86 91 85 Respiratory Rate 22 H Blood Pressure 105/50 L Pulse Oximetry 96 Oxygen Delivery 06/29/22 20:00 06/29/22 20:00 06/29/22 20:00 Temperature 37.4 C Pulse Rate 78 87 78 Respiratory Rate 20 20 Blood Pressure 103/59 L Pulse Oximetry 95 95 Oxygen Delivery Room Air 06/29/22 22:00 06/30/22 00:00 06/30/22 00:00 Temperature 36.7 C Pulse Rate 82 84 92 Respiratory Rate 20 Blood Pressure 101/59 L Pulse Oximetry 94 Oxygen Delivery 06/30/22 00:00 06/30/22 02:00 06/30/22 04:00 Temperature Pulse Rate 84 75 66 Respiratory Rate 20 Blood Pressure Pulse Oximetry 94 Oxygen Delivery Room Air 06/30/22 04:00 06/30/22 04:00 06/30/22 06:00 Temperature 36.7 C Pulse Rate 75 75 78 Respiratory Rate 20 20 Blood Pressure 107/64 Pulse Oximetry 94 97 Oxygen Delivery Room Air 06/30/22 07:57 06/30/22 08:53 Temperature 36.4 C L Pulse Rate 85 76 Respiratory Rate 20 Blood Pressure 106/62 Pulse Oximetry 96 Oxygen Delivery Intake/Output Intake/Output: Intake & Output 06/27/22
[2022-06-30] MEDS: SODIUM CHLORIDE NASAL GEL 14.1 GM 1 APPLIC NASAL ×2 (11:29→20:47)
[2022-06-30] MEDS: POTASSIUM CHLORIDE 20 MEQ TABLET 40 MEQ PO (11:29)
[2022-06-30] MEDS: SPIRONOLACTONE 25 MG TABLET PO (12:13)
[2022-06-30] MEDS: METOPROLOL TARTRATE 12.5 MG TABLET PO (12:13)
--- NOTE | 2022-06-30 14:44 | PCNSR ---
On 06/30/22, the student,Darinel Mcgarry, provided care and completed [facility] documentation on this patient. I have reviewed the student's documentation and agree with the findings.
[2022-07-01] VITALS (7 sets, daily range): BP systolic 82–124; BP diastolic 42–70; PULSE 69–97; RESP 14–16; TEMP 36.4–36.5; O2SAT 96–98
[2022-07-01 04:44] LABS: Hematocrit 38.7 % (37.0-47.0); Hemoglobin 13.3 g/dL (12.0-15.0); Mean Corpuscular HGB Conc 34.4 g/dl (32-36); Mean Corpuscular Hemoglobin 31.8 pg (26-34); Mean Corpuscular Volume 92.6 fl (80-100); Mean Platelet Volume 9.7 fl (7.4-10.4); Platelet Count Result 173 k/mm3 (150-375); Red Blood Count 4.18 M/mm3 (4.2-5.4); Red Cell Distribution Width 13.6 % (11.5-14.5); White Blood Count 13.4 K/mm3 (4.5-10.0)
[2022-07-01 04:55] LABS: Alanine Aminotransferase 44 U/L (6-35); Albumin Level 3.9 g/dL (3.5-5.1); Alkaline Phosphatase 76 U/L (38-126); Anion Gap 6 mmol/L (8-16); Aspartate Amino Transferase 95 U/L (14-36); Bilirubin,Total 0.9 mg/dL (0.2-1.3); Blood Urea Nitrogen 32 mg/dL (7-17); Carbon Dioxide 25 mmol/L (22-30); Chloride 103 mmol/L (98-107); Estimated CRCL calculation 44 ml/min; Estimated Glomerular Filt Rate > 60; Glucose 133 mg/dL (65-110); Magnesium 1.8 mg/dL (1.6-2.3); Sodium 134 mmol/L (137-145)
--- NOTE | 2022-07-01 08:35 | PM.DS ---
DS: Admitting Diagnosis Discharge Date 07/01/2022 Admitting Diagnosis Chest pain DS: Discharge Diagnosis Discharge Diagnosis (1) ST elevation (STEMI) myocardial infarction: Code(s): I21.3 - ST elevation (STEMI) myocardial infarction of unspecified site Status: Acute Assessment and Plan: Late presentation anterolateral OR with 100% thrombotic occlusion of the mid LAD. This was addressed with placement of 2 SARI in the proximal to mid LAD. Continue DAPT with ASA and Brilinta. Continue statin. Monitor for adverse effects as she reports inability to tolerate statins in the past. Aggressive risk factor modification for CAD Consult newspaper correspondent for heart healthy diet education Cardiac rehab referral Renal function stable today (Cr 0.90). Discharge today (2) Cardiomyopathy: Code(s): I42.9 - Cardiomyopathy, unspecified Status: Acute Assessment and Plan: Severe LV dysfunction, EF 15% GDMT with losartan, metoprolol, spironolactone, jardiance Unable to tolerate increase of metoprolol at this time, decrease back to 25mg daily. Further titration as outpatient. I discussed the concept of a LifeVest with her for prevention of SCD. She would like to proceed with this. Order placed. (3) Elevated liver enzymes: Code(s): R74.8 - Abnormal levels of other serum enzymes Status: Acute Assessment and Plan: Improving (4) CHF (congestive heart failure): Code(s): I50.9 - Heart failure, unspecified Status: Acute Assessment and Plan: No signs of decompensated HF on exam. DS: Summary Hospital Course Hospital Course: ?77-year-old female with a history of hypertension who presented with chest pain that began on Monday.? Upon presentation to the ED, ECG was remarkable for anterolateral STEMI.? Patient had ongoing chest pain.? Patient referred for emergent cardiac catheterization for primary PCI. Underwent PCI to the LAD with attempted thrombectomy and placement of 2 drug eluting stents in the proximal to mid LAD. TTE was performed and revealed severe cardiomyopathy, EF less than 15%. She was initiated on medical therapy and was monitor in the hospital for tolerance to new medication regimen. She did not have any postprocedural complications. She recovered as expected and is appropriate for discharge home today. Time Spent with Patient Time attestation: Total time spent providing and/or coordinating discharge services: 63 minutes Exam Const: General: comfortable and no acute distress Other: Pleasant elderly lady lying comfortably in bed. Alert, oriented. Eyes: General: appearance normal, both eyes and all related structures Pupils: Equal, round and reactive pupils present EOM: EOMs intact bilaterally Neck: Neck: no JVD Resp: Effort & Inspection: normal respiratory effort Auscultation: diminished lung sounds Cardio: Rate: regular rate Rhythm: regular rhythm Heart sounds: no murmurs Skin: General skin exam: normal color Neuro: Speech: normal speech Extrem: General: no edema Other: 2+ distal pulses. R radial arterial access site free from bleeding, hematoma. Radial pulse intact. Psych: Mental Status: mental status grossly normal DS: Data Data Completed and Pending Labs on day of discharge: Labs from last 24 hours 07/01/22 07/01/22 04:34 04:34 WBC 13.4 H RBC 4.18 L Hgb 13.3 Hct 38.7 MCV 92.6 MCH 31.8 MCHC 34.4 RDW 13.6 Plt Count 173 MPV 9.7 Sodium 134 L Potassium 4.0 Chloride 103 Carbon Dioxide 25 Anion Gap 6 L BUN 32 H Creatinine 0.90 Estim Creat Clear Calc 44 Estimated GFR > 60 Glucose 133 H Calcium 9.0 Magnesium 1.8 Total Bilirubin 0.9 AST 95 H ALT 44 H Alkaline Phosphatase 76 Total Protein 7.0 Albumin 3.9 Discharge Plan Discharge Attending physician on discharge: Randy Owens Consulting providers: Caroline Holbrook
[2022-07-01] MEDS: METOPROLOL SUCCINATE EXT REL 25 MG TABCR PO (10:06)
[2022-07-01] MEDS: PANTOPRAZOLE 40 MG TABLET PO (10:07)
[2022-07-01] MEDS: TICAGRELOR 90 MG TABLET PO (10:07)
[2022-07-01] MEDS: LOSARTAN POTASSIUM 25 MG TABLET PO (10:08)
[2022-07-01] MEDS: ASPIRIN 81 MG ENTERIC TABLET PO (10:08)
[2022-07-01] MEDS: ATORVASTATIN 40 MG TABLET 80 MG PO (10:08)
[2022-07-01] MEDS: EMPAGLIFLOZIN 10 MG TABLET PO (10:08)
[2022-07-01] MEDS: SPIRONOLACTONE 25 MG TABLET PO (10:08)
[2022-07-01] MEDS: SODIUM CHLORIDE NASAL GEL 14.1 GM 1 APPLIC NASAL (10:09)
[2022-07-01] MEDS: CALCIUM CARBONATE (TUMS) 500 MG (200 MG ELEMENTAL) PO (15:42)
== END 2022-07-01 17:30 | disposition home or self-care (01) | DRG 246 ==
LOC: ANHED 09:46 → ANHICU 10:59 → ANHIMU 06-29 12:11
PROVIDERS: Internal Medicine; Admitting Provider Internal Medicine; Emergency Provider Nurse Practitioner Family; PCP Internal Medicine; Visit Provider Nurse Practitioner
PROC: 4A023N7 Measurement of Cardiac Sampling and Pressure, Left Heart, Percutaneous Approach (ICD-10-PCS; CPT 93452; principal; 2022-06-28 09:40)
PROC: 027035Z Dilation of Coronary Artery, One Artery with Two Drug-eluting Intraluminal Devices, Percutaneous Approach (ICD-10-PCS; 2022-06-28 09:40)
PROC: 027035Z Dilation of Coronary Artery, One Artery with Two Drug-eluting Intraluminal Devices, Percutaneous Approach (ICD-10-PCS; 2022-06-28 09:40)
DX: I21.02 ST elevation (STEMI) myocardial infarction involving left anterior descending coronary artery (principal); I25.42 Coronary artery dissection; I50.21 Acute systolic (congestive) heart failure; I25.5 Ischemic cardiomyopathy; I11.0 Hypertensive heart disease with heart failure; R74.8 Abnormal levels of other serum enzymes; E87.6 Hypokalemia
CPT/HCPCS: 36415; 80048; 80053; 80061; 83036; 83690; 83735; 84100; 84484; 85025; 85027; 85610; 85730; 86850; 86900; 86901; 92978; 93005; 93458; 96374; 96375; 99285; A9270; C1725; C1753; C1757; C1769; C1874; C1887; C1894; C8929; C9606; J1327; J1644; J1940; J2250; J2270; J2405; J3010; J7030; Q9957

== ENCOUNTER 2022-10-26 11:00 | Outpatient (RCR) | payer OTHER, SELFPAY | END 2022-10-26 11:17 | disposition home or self-care (01) | LOC: ANHCPREHAB 11:00 | PROVIDERS: PCP Internal Medicine; Visit Provider Nurse Practitioner | DX: I25.2 Old myocardial infarction (principal) | CPT/HCPCS: 93798 ==

== ENCOUNTER 2024-06-21 11:44 | Outpatient (CLI) | payer OTHER, SELFPAY ==
--- NOTE | ~2024-06-21 | XR_ITS ---
EXAMINATION: XR pelvis 1-2V DATE: 06/21/2024 12:00 INDICATION: Pain in the hips. TECHNIQUE: Anteroposterior and frog-leg views of the hips on 3 radiographs were obtained. COMPARISON: None. FINDINGS: Bone alignment is normal. No fracture. There is severe lumbar spondylosis. There is mild os teoarthritis of the hips. Osteitis pubis is noted. IMPRESSION: 1. Mild osteoarthritis of the hips. Reviewed, dictated and finalized at location A.
== END 2024-06-21 11:45 | disposition home or self-care (01) ==
LOC: MICIMG 11:45
PROVIDERS: PCP Internal Medicine; Visit Provider Internal Medicine
DX: M16.0 Bilateral primary osteoarthritis of hip (principal)
CPT/HCPCS: 72170

== ENCOUNTER 2025-06-26 10:51 | Outpatient (CLI) | payer OTHER, SELFPAY ==
--- NOTE | ~2025-06-26 | XR_ITS ---
EXAMINATION: XR chest 2V, 06/26/2025 11:15 CDT HISTORY: Acute cough COMPARISON: No comparisons available. Technique: 2 views obtained. Findings: The lungs are clear, no effusion. No pneumothorax. Heart is normal size. Mediastinal and hilar contours are within normal limits. Bony thorax no acute abnormality. Impression: No acute cardiopulmonary abnormality. Reviewed, dictated and finalized at location A. Impression: No acute cardiopulmonary abnormality.
== END 2025-06-26 10:52 | disposition home or self-care (01) ==
LOC: MICIMG 08-01 10:34
PROVIDERS: PCP Internal Medicine; Visit Provider Internal Medicine
DX: R05.1 Acute cough (principal)
CPT/HCPCS: 71046